=== PATIENT | female | born 1940 | race Caucasian/White ===

== ENCOUNTER 2017-02-14 08:54 | Observation (INO) | payer OTHER, BC ==
[~2017-02-14] VITALS: Ht 154.9 cm; Wt 68.5 kg
[2017-02-14 10:21] LABS: HEMATOCRIT 33.3 % (36.0-46.0); MCHC 35.4 G/DL (30.0-36.0); MCV 115.6 FL (83-99); MEAN PLAT.VOLUME 11.9 uM^3 (9.5-12.4); PLATELET COUNT 95 K/uL (156-360); RBC DIS.WIDTH-CV 12.5 % (11.8-14.6); RBC DIS.WIDTH-SD 53.5 % (39-53); RED BLOOD COUNT 2.88 M/uL (3.80-5.20); WHITE BLOOD COUNT 3.7 K/uL (4.1-10.2)
[2017-02-14 10:22] LABS: CHLORIDE 101 mEq/L (99-109); POTASSIUM 4.3 mEq/L (3.7-5.4); SODIUM 131 mEq/L (136-147)
[2017-02-14 10:23] LABS: GLUCOSE 190 mg/dL (70-99)
[2017-02-14 10:25] LABS: ANION GAP 10 MEQ/L (2-14)
[2017-02-14 10:27] LABS: GFR ESTIMATE (CALCULATED) > 59 mL/min/
[2017-02-14 10:28] LABS: UREA NITROGEN (BUN) 15 mg/dL (9-23)
[2017-02-14 11:21] LABS: ABS NEUTROPHIL COUNT 3.5; ANISOCYTOSIS 2+; ATYPICAL LYMPHOCYTE 0.9 %; EOSINOPHIL ABS CT 0; INSTRUMENT ABS NEUTROPHIL CT 3.2 K/uL; LYMPHOCYTES 1.7 % (15.0-45.0); MACROCYTES 2+; MYELOCYTES 1.8 %; PLAT.SUFFICIENCY DECREASED; SEG.NEUTROPHILS 95.6 % (46.0-76.0); TEAR DROP CELLS 1+
[2017-02-14] MEDS ORDERED: ALTACE5 MG PO (11:44)
[2017-02-14] MEDS ORDERED: PLENDIL5 M1 PO (11:45)
[2017-02-14] MEDS ORDERED: CIPROFLOXACIN500 M1 PO (11:45)
[2017-02-14] MEDS ORDERED: VITAMIN D31000 UNI2 PO (11:46)
[2017-02-14] MEDS ORDERED: VITAMIN B-12250 MCG PO (11:46)
[2017-02-14 13:50] LABS: ANION GAP 10 MEQ/L (2-14); CHLORIDE 100 MEQ/L (99-109); SAMPLE HEMOLYSIS CHECK 0; SAMPLE ICTERIC CHECK 0; SAMPLE LIPEMIA CHECK 0; SODIUM 131 MEQ/L (136-147); TOTAL BILIRUBIN 1.6 MG/DL (0.0-1.0)
[2017-02-14 13:56] LABS: ALKALINE PHOSPHATASE 128 IU/L (3-129); GFR ESTIMATE (CALCULATED) > 59 mL/min/; GLUCOSE 174 mg/dL (70-99); UREA NITROGEN (BUN) 16 mg/dL (9-23)
[2017-02-14 14:03] VITALS: BP 148/67
[2017-02-14 14:11] LABS: HEMATOCRIT 34.4 % (36.0-46.0); MCH 40.3 PG (29.0-34.0); MCHC 34.9 G/DL (30.0-36.0); MCV 115.4 FL (83-99); MEAN PLAT.VOLUME 11.7 uM^3 (9.5-12.4); PLATELET COUNT 98 K/uL (156-360); RBC DIS.WIDTH-CV 12.7 % (11.8-14.6); RBC DIS.WIDTH-SD 54.7 % (39-53); RED BLOOD COUNT 2.98 M/uL (3.80-5.20); WHITE BLOOD COUNT 3.5 K/uL (4.1-10.2)
[2017-02-14 17:35] VITALS: BP 149/79
[2017-02-14 19:26] VITALS: BP 140/78
[2017-02-14 20:39] LABS: ADD MIUA? NO; BILIRUBIN NEGATIVE; BLOOD NEGATIVE; COLOR STRAW ((YELLOW)); GLUCOSE (STRIP) NEGATIVE; KETONES NEGATIVE; LEUKOCYTES NEGATIVE; NITRITE NEGATIVE; PROTEIN (STRIP) NEGATIVE; SPECIFIC GRAVITY 1.003 (1.000-1.030); UCUL ADDED? NO; UROBILINOGEN 0.2 MG/DL (0.2-1.0)
[2017-02-14 23:46] VITALS: BP 177/80
[2017-02-15 06:16] LABS: HEMATOCRIT 32.2 % (36.0-46.0); MCH 41.1 PG (29.0-34.0); MCHC 35.1 G/DL (30.0-36.0); MCV 117.1 FL (83-99); MEAN PLAT.VOLUME 12.3 uM^3 (9.5-12.4); PLATELET COUNT 91 K/uL (156-360); RBC DIS.WIDTH-CV 12.7 % (11.8-14.6); RBC DIS.WIDTH-SD 54.7 % (39-53); RED BLOOD COUNT 2.75 M/uL (3.80-5.20)
[2017-02-15 06:31] LABS: ANION GAP 7 MEQ/L (2-14); CHLORIDE 106 MEQ/L (99-109); GFR ESTIMATE (CALCULATED) > 59 mL/min/; GLUCOSE 134 mg/dL (70-99); POTASSIUM 4.1 MEQ/L (3.7-5.4); SAMPLE HEMOLYSIS CHECK 0; SAMPLE ICTERIC CHECK 0; SAMPLE LIPEMIA CHECK 0; SODIUM 137 MEQ/L (136-147); UREA NITROGEN (BUN) 11 mg/dL (9-23)
[2017-02-15 06:52] LABS: ABS NEUTROPHIL COUNT 1.8; ANISOCYTOSIS 2+; BAND NEUTROPHILS 5.4 % (0-8.0); EOSINOPHIL ABS CT 0; INSTRUMENT ABS NEUTROPHIL CT 1.4 K/uL; LYMPHOCYTES 6.2 % (15.0-45.0); MACROCYTES 2+; METAMYELOCYTES 2.7 %; MYELOCYTES 2.7 %; NUCLEATED RBC'S 0.9; PLAT.SUFFICIENCY DECREASED; POIKILOCYTOSIS 1+; SEG.NEUTROPHILS 82.1 % (46.0-76.0)
[2017-02-15 07:35] VITALS: BP 147/70
[2017-02-15 08:50] LABS: Estimated Average Glucose 126 mg/dL (70-123)
[2017-02-15] MEDS ORDERED: ANTIVERT25 MG PO (11:26)
[2017-02-15] MEDS ORDERED: ONDANSETRON ODT4 MG PO (11:27)
[2017-02-15 15:55] VITALS: BP 119/59
== END 2017-02-15 17:45 | disposition home or self-care (01) ==
LOC: EME 08:54 → EDBD 08:54 → 5SOUTH 11:10 → EDOF 11:10 → 5SOUTH 11:10 → ENRESERV 11:12 → EDOF 11:15 → ENRESERV 11:41 → 5SOUTH 12:55
PROVIDERS: Emergency Medicine; Internal Medicine
DX: R42 Dizziness and giddiness (principal); R90.89 Other abnormal findings on diagnostic imaging of central nervous system; N39.0 Urinary tract infection, site not specified; R11.2 Nausea with vomiting, unspecified; I10 Essential (primary) hypertension; Z85.3 Personal history of malignant neoplasm of breast; Z92.21 Personal history of antineoplastic chemotherapy; Z92.3 Personal history of irradiation
CPT/HCPCS: 70450; 70551; 80048; 80053; 81003; 82607; 82746; 83036; 85025; 85027; 93005; 99281; 99285; G0378; G8978 GP CJ; G8979 GP CH; G8980 GP CI; J1650; J2405; J7030

== ENCOUNTER 2017-10-01 12:21 | Inpatient (IN) | payer OTHER, BC ==
[~2017-10-01] VITALS: Ht 160 cm; Wt 67.3 kg
[~2017-10-01 12:21] MED LIST: ALTACE5 MG PO; ANTIVERT25 MG PO; CIPROFLOXACIN500 M1 PO; ONDANSETRON ODT4 MG PO; PLENDIL5 M1 PO; VITAMIN B-12250 MCG PO; VITAMIN D31000 UNI2 PO
[2017-10-01 15:23] LABS: APPEARANCE TURBID ((CLEAR)); BILIRUBIN SMALL; BLOOD SMALL; COLOR AMBER ((YELLOW)); GLUCOSE (STRIP) NEGATIVE; KETONES NEGATIVE; LEUKOCYTES MODERATE; NITRITE NEGATIVE; PROTEIN (STRIP) 100; SPECIFIC GRAVITY 1.015 (1.000-1.030)
[2017-10-01 15:35] LABS: UCUL ADDED? YES; WHITE BLOOD CELLS TNTC /HPF (0-5)
[2017-10-01 15:44] LABS: MCH 35.3 PG (29.0-34.0); MCHC 35.8 G/DL (30.0-36.0); NRBC (%) 0.2 /100 WBC (0-0); RBC DIS.WIDTH-CV 16.3 % (11.8-14.6); RBC DIS.WIDTH-SD 59.4 % (39-53); WHITE BLOOD COUNT 13.1 K/uL (4.1-10.2)
[2017-10-01 15:47] LABS: ALBUMIN 3.2 g/dL (3.2-4.8); CHLORIDE 105 mEq/L (99-109); POTASSIUM 4.6 mEq/L (3.7-5.4); SODIUM 133 mEq/L (136-147)
[2017-10-01 15:50] LABS: GLUCOSE 115 mg/dL (70-99); TOTAL PROTEIN 6.1 g/dL (6.4-8.3)
[2017-10-01 15:52] LABS: TOTAL BILIRUBIN 6.5 mg/dL (0.0-1.0)
[2017-10-01 15:53] LABS: ALKALINE PHOSPHATASE 707 IU/L (3-129); GFR ESTIMATE (CALCULATED) 57 mL/min/
[2017-10-01 15:54] LABS: UREA NITROGEN (BUN) 28 mg/dL (9-23)
[2017-10-01 15:56] LABS: ALT (GPT) 269 IU/L (3-49)
[2017-10-01 15:57] LABS: TROP-I INTERPRETATION NEGATIVE; TROPONIN-I < 0.01 ng/mL (0.0-0.30)
[2017-10-01 16:10] LABS: AST (GOT) 1093 IU/L (2-34)
[2017-10-01 16:27] LABS: HEMOGLOBIN 15.4 G/DL (11.9-15.5); MCV 98.6 FL (83-99); PLAT.SUFFICIENCY DECREASED; PLATELET COUNT 95 K/uL (156-360); RED BLOOD COUNT 4.36 M/uL (3.80-5.20)
[2017-10-01 16:58] LABS: INTER. NORMALIZED RATIO 1.5
[2017-10-01 17:01] LABS: PTT 26.5 SEC (25-37)
[2017-10-01 17:03] LABS: ALBUMIN 2.8 g/dL (3.2-4.8)
[2017-10-01 17:04] LABS: CHLORIDE 106 mEq/L (99-109); POTASSIUM 3.7 mEq/L (3.7-5.4); SODIUM 135 mEq/L (136-147)
[2017-10-01 17:06] LABS: GLUCOSE 108 mg/dL (70-99)
[2017-10-01 17:08] LABS: TOTAL BILIRUBIN 5.8 mg/dL (0.0-1.0)
[2017-10-01 17:09] LABS: ALKALINE PHOSPHATASE 594 IU/L (3-129)
[2017-10-01 17:10] LABS: CREATININE 0.9 mg/dL (0.6-1.3); GFR ESTIMATE (CALCULATED) > 59 mL/min/
[2017-10-01 17:11] LABS: AST (GOT) 909 IU/L (2-34); TOTAL PROTEIN 5.1 g/dL (6.4-8.3); UREA NITROGEN (BUN) 27 mg/dL (9-23)
[2017-10-01 17:12] LABS: ALT (GPT) 225 IU/L (3-49)
[2017-10-01] MEDS ORDERED: ANTIVERT25 MG PO (18:24)
[2017-10-01] MEDS ORDERED: VYZULTA5 ML RIGHT EYE (18:25)
[2017-10-01] MEDS ORDERED: PRED FORTE100 DROP/5 LEFT EYE (18:26)
[2017-10-01] MEDS ORDERED: DIAMOX250 MG PO (18:26)
[2017-10-01] MEDS ORDERED: COMBIGAN O20 DROP/5 RIGHT EYE (18:26)
[2017-10-01] MEDS ORDERED: PATANOL OP100 DROP/5 BOTH EYES (18:27)
[2017-10-01 20:55] VITALS: BP 132/63
[2017-10-01 23:56] VITALS: BP 120/72
[2017-10-02 04:17] VITALS: BP 119/68
[2017-10-02 06:52] LABS: HEMATOCRIT 38.5 % (36.0-46.0); HEMOGLOBIN 13.5 G/DL (11.9-15.5); MCHC 35.1 G/DL (30.0-36.0); MCV 99.7 FL (83-99); PLATELET COUNT 112 K/uL (156-360); RBC DIS.WIDTH-CV 17.2 % (11.8-14.6); RBC DIS.WIDTH-SD 61.1 % (39-53); RED BLOOD COUNT 3.86 M/uL (3.80-5.20); WHITE BLOOD COUNT 10.9 K/uL (4.1-10.2)
[2017-10-02 07:14] LABS: ALBUMIN 2.8 G/DL (3.2-4.8); ALKALINE PHOSPHATASE 504 IU/L (3-129); ALT (GPT) 163 IU/L (3-49); AST (GOT) 551 IU/L (2-34); CHLORIDE 107 MEQ/L (99-109); CREATININE 0.9 MG/DL (0.6-1.3); GFR ESTIMATE (CALCULATED) > 59 mL/min/; GLUCOSE 100 mg/dL (70-99); POTASSIUM 3.9 MEQ/L (3.7-5.4); SODIUM 137 MEQ/L (136-147); TOTAL BILIRUBIN 6.3 MG/DL (0.0-1.0); TOTAL PROTEIN 4.7 G/DL (6.4-8.3); UREA NITROGEN (BUN) 23 mg/dL (9-23)
[2017-10-02 07:41] VITALS: BP 128/63
[2017-10-02 11:06] VITALS: BP 130/69
[2017-10-02 11:10] LABS: INTER. NORMALIZED RATIO 1.6
[2017-10-02 12:47] LABS: HEPATITIS B SURFACE ANTIGEN Nonreactive
[2017-10-02 12:48] LABS: HEPATITIS C ANTIBODY Nonreactive
[2017-10-02 12:49] LABS: ANTI-HEPATITIS A VIRUS (IGM) Nonreactive; ANTI-HEPATITIS B CORE (IGM) Nonreactive
[2017-10-02 15:00] VITALS: BP 133/70
[2017-10-02 19:25] VITALS: BP 142/73
[2017-10-02 23:10] VITALS: BP 105/55
[2017-10-03 04:00] VITALS: BP 129/68
[2017-10-03 06:27] LABS: BASOPHIL (%) 0.2 % (0-1); EOSINOPHIL (%) 0.3 % (0-5); HEMATOCRIT 39.7 % (36.0-46.0); HEMOGLOBIN 13.6 G/DL (11.9-15.5); IMMATURE GRANULOCYTE (%) 0.6 % (0.0-0.7); LYMPHOCYTE COUNT 1.5 K/uL (1.0-2.8); MCH 34.3 PG (29.0-34.0); MCHC 34.3 G/DL (30.0-36.0); MONOCYTE (%) 8.2 % (3-12); MONOCYTE COUNT 0.9 K/uL (0-0.8); NEUTROPHIL (%) 76.7 % (45-76); NEUTROPHIL COUNT 8.4 K/uL (1.8-6.4); PLATELET COUNT 116 K/uL (156-360); RBC DIS.WIDTH-CV 17.7 % (11.8-14.6); RBC DIS.WIDTH-SD 64.6 % (39-53); RED BLOOD COUNT 3.97 M/uL (3.80-5.20)
[2017-10-03 06:34] LABS: INTER. NORMALIZED RATIO 1.6
[2017-10-03 06:54] LABS: ALBUMIN 2.7 G/DL (3.2-4.8); ALKALINE PHOSPHATASE 465 IU/L (3-129); ALT (GPT) 123 IU/L (3-49); CHLORIDE 107 MEQ/L (99-109); CREATININE 0.9 MG/DL (0.6-1.3); GFR ESTIMATE (CALCULATED) > 59 mL/min/; GLUCOSE 128 mg/dL (70-99); POTASSIUM 3.9 MEQ/L (3.7-5.4); SODIUM 137 MEQ/L (136-147); TOTAL PROTEIN 4.5 G/DL (6.4-8.3); UREA NITROGEN (BUN) 23 mg/dL (9-23)
[2017-10-03 07:06] LABS: AST (GOT) 286 IU/L (2-34); TOTAL BILIRUBIN 7.8 MG/DL (0.0-1.0)
[2017-10-03 07:39] VITALS: BP 123/61
[2017-10-03 10:56] LABS: TYPE OF FLUID PARACENTESIS
[2017-10-03 11:12] LABS: APPEARANCE YELLOW-CLEAR; BODY FLUID RBC'S < 1000 /MM^3 (0-100); BODY FLUID WBC'S 99 /MM^3 (0-500)
[2017-10-03 11:26] VITALS: BP 108/59
[2017-10-03 11:44] LABS: BODY FLUID EOSINOPHILS 0 % (0-25); MONONUCLEAR WBC'S 52 %; POLYNUCLEAR WBC'S 48 % (0-25)
[2017-10-03 12:23] LABS: BODY FLUID GLUCOSE 161 MG/DL; BODY FLUID LDH 79 IU/L
[2017-10-03 12:25] LABS: BODY FLUID PROTEIN < 3.0 G/DL
[2017-10-03 16:00] VITALS: BP 103/62
[2017-10-03 19:37] VITALS: BP 125/72
[2017-10-03 23:59] VITALS: BP 109/62
[2017-10-04 06:24] LABS: BASOPHIL (%) 0.2 % (0-1); EOSINOPHIL COUNT 0.1 K/uL (0-0.3); HEMATOCRIT 39.5 % (36.0-46.0); HEMOGLOBIN 13.8 G/DL (11.9-15.5); IMMATURE GRANULOCYTE (%) 0.9 % (0.0-0.7); LYMPHOCYTE (%) 12.8 % (15-42); LYMPHOCYTE COUNT 1.3 K/uL (1.0-2.8); MCH 34.7 PG (29.0-34.0); MCHC 34.9 G/DL (30.0-36.0); MCV 99.2 FL (83-99); NEUTROPHIL (%) 75.1 % (45-76); NEUTROPHIL COUNT 7.3 K/uL (1.8-6.4); PLATELET COUNT 86 K/uL (156-360); RBC DIS.WIDTH-CV 17.5 % (11.8-14.6); RBC DIS.WIDTH-SD 64.1 % (39-53); RED BLOOD COUNT 3.98 M/uL (3.80-5.20); WHITE BLOOD COUNT 9.7 K/uL (4.1-10.2)
[2017-10-04 06:25] LABS: INTER. NORMALIZED RATIO 1.5
[2017-10-04 06:46] LABS: ALBUMIN 2.4 G/DL (3.2-4.8); ALKALINE PHOSPHATASE 402 IU/L (3-129); ALT (GPT) 103 IU/L (3-49); AST (GOT) 200 IU/L (2-34); CHLORIDE 104 MEQ/L (99-109); CREATININE 0.9 MG/DL (0.6-1.3); GFR ESTIMATE (CALCULATED) > 59 mL/min/; GLUCOSE 138 mg/dL (70-99); POTASSIUM 3.8 MEQ/L (3.7-5.4); SODIUM 132 MEQ/L (136-147); TOTAL BILIRUBIN 8.9 MG/DL (0.0-1.0); TOTAL PROTEIN 4.3 G/DL (6.4-8.3); UREA NITROGEN (BUN) 24 mg/dL (9-23)
[2017-10-04 06:55] VITALS: BP 122/71
[2017-10-04 11:04] VITALS: BP 102/64
[2017-10-04 15:03] VITALS: BP 113/62
[2017-10-04 19:48] VITALS: BP 116/67
[2017-10-04 23:38] VITALS: BP 110/63
[2017-10-04 23:51] LABS: BODY FLUID PH 8.1 (())
[2017-10-05 03:23] VITALS: BP 108/65
[2017-10-05 06:53] LABS: HEMATOCRIT 38.9 % (36.0-46.0); MCH 34.8 PG (29.0-34.0); MCV 96.8 FL (83-99); NRBC (%) 0.2 /100 WBC (0-0); PLATELET COUNT 101 K/uL (156-360); RBC DIS.WIDTH-CV 17.2 % (11.8-14.6); RBC DIS.WIDTH-SD 61.5 % (39-53); RED BLOOD COUNT 4.02 M/uL (3.80-5.20); WHITE BLOOD COUNT 9.8 K/uL (4.1-10.2)
[2017-10-05 07:00] VITALS: BP 105/60
[2017-10-05 07:36] LABS: CHLORIDE 105 MEQ/L (99-109); CREATININE 0.8 MG/DL (0.6-1.3); GFR ESTIMATE (CALCULATED) > 59 mL/min/; GLUCOSE 107 mg/dL (70-99); POTASSIUM 4.1 MEQ/L (3.7-5.4); SODIUM 132 MEQ/L (136-147); UREA NITROGEN (BUN) 31 mg/dL (9-23)
[2017-10-05] MEDS ORDERED: ZOFRAN ODT4 MG PO (12:25)
[2017-10-05] MEDS ORDERED: AMPICILLIN TRI500 MG PO (12:25)
[2017-10-05] MEDS ORDERED: XIFAXAN550 MG PO (12:25)
[2017-10-05 12:44] VITALS: BP 100/57
[2017-10-05 15:45] VITALS: BP 102/56
[2017-10-05 17:29] LABS: Cytomegalovirus IgG Antibody+ >10.00 U/mL (<0.60); Cytomegalovirus IgM Antibody+ <30.00 AU/mL (<30.00)
[2017-10-05 19:46] VITALS: BP 108/60
[2017-10-06] VITALS: BP 112/80
[2017-10-06 03:49] VITALS: BP 124/74
[2017-10-06 06:47] LABS: CHLORIDE 101 MEQ/L (99-109); CREATININE 1.1 MG/DL (0.6-1.3); GFR ESTIMATE (CALCULATED) 51 mL/min/; GLUCOSE 118 mg/dL (70-99); POTASSIUM 4.6 MEQ/L (3.7-5.4); SODIUM 130 MEQ/L (136-147); UREA NITROGEN (BUN) 34 mg/dL (9-23)
[2017-10-06 06:55] VITALS: BP 123/71
== END 2017-10-06 14:20 | DRG 872 ==
LOC: EME 12:21 → 2EAST 19:45 → EDOF 19:45 → ENRESERV 19:46 → 2EAST 20:37
PROVIDERS: Internal Medicine; Internal Medicine Gastroenterology; Nurse Practitioner Family
PROC: 0W9G30Z Drainage of Peritoneal Cavity with Drainage Device, Percutaneous Approach (ICD-10-PCS; principal; 2017-10-03)
DX: A41.9 Sepsis, unspecified organism (principal); N39.0 Urinary tract infection, site not specified; B95.2 Enterococcus as the cause of diseases classified elsewhere; C50.911 Malignant neoplasm of unspecified site of right female breast; C78.7 Secondary malignant neoplasm of liver and intrahepatic bile duct; C79.51 Secondary malignant neoplasm of bone; E86.0 Dehydration; E87.1 Hypo-osmolality and hyponatremia; R18.8 Other ascites; J90 Pleural effusion, not elsewhere classified; D69.59 Other secondary thrombocytopenia; T45.1X5A Adverse effect of antineoplastic and immunosuppressive drugs, initial encounter; Z66 Do not resuscitate; D68.9 Coagulation defect, unspecified; R41.0 Disorientation, unspecified; I10 Essential (primary) hypertension; K57.30 Diverticulosis of large intestine without perforation or abscess without bleeding; H40.9 Unspecified glaucoma; Z90.11 Acquired absence of right breast and nipple; Z79.899 Other long term (current) drug therapy; Z92.3 Personal history of irradiation
CPT/HCPCS: 49083; 71046; 74177; 80048; 80053; 80074; 81003; 82140; 82306; 82945; 83605; 83615 91; 83986 90; 84157; 84315; 84484; 85025; 85027; 85610; 85730; 86644 90; 86645 90; 87040; 87070; 87077; 87086; 87186; 87205; 87493; 88108; 88305; 89051; 93005; 93970; 97530 GO; 97530 GP; 99281; 99285; J0290; J0295; J0696; J2405; J3370; J7030; J7050